=== PATIENT | female | born 1995 | race Caucasian/White ===

== ENCOUNTER → 2019-05-04 | Outpatient (CLI) | payer OTHER ==
[2019-05-04 17:28] LABS: BASO # 0.1 x10^3/uL (0.0-0.2); BASO % 1 % (0-3); EOS % 1 % (0-3); HEMATOCRIT 37.1 % (36.0-47.0); HEMOGLOBIN 12.8 g/dL (12.0-15.5); LYMPH # 1.5 x10^3/uL (1.0-4.8); LYMPH % 15 % (24-48); MEAN CORPUSCULAR HEMOGLOBIN 30 pg (25-35); MEAN CORPUSCULAR HGB CONC 35 g/dL (31-37); MEAN CORPUSCULAR VOLUME 87 fL (79-100); MONO # 0.5 x10^3/uL (0.0-1.1); MONO % 5 % (0-9); NEUT # 8.3 x10^3/uL (1.8-7.7); NEUT % 80 % (31-73); PLATELET COUNT 371 x10^3/uL (140-400); RED BLOOD COUNT 4.28 x10^6/uL (3.50-5.40); RED CELL DISTRIBUTION WIDTH 12.7 % (11.5-14.5); WHITE BLOOD COUNT 10.4 x10^3/uL (4.0-11.0)
== END | disposition home or self-care (01) ==
LOC: LAB 16:41
PROVIDERS: ATTEND Obstetrics & Gynecology
DX: Z32.01 Encounter for pregnancy test, result positive (principal)
CPT/HCPCS: 81220; 85025; 86592; 86703; 86762; 86850; 86900; 86901; 87340

== ENCOUNTER 2019-07-28 20:45 | Emergency (ER) | payer OTHER ==
[~2019-07-28] VITALS: Ht 167.6 cm; Wt 90.7 kg
--- NOTE | 2019-07-28 21:49 | PHYS DOC ---
Past Medical History Past Medical History: No Pertinent History (LAURIE GREEN APRN) Past Surgical History: No Surgical History (LAURIE GREEN APRN) Alcohol Use: None Drug Use: None (LAURIE GREEN APRN) Attending Signature I have participated in the care of this patient and I have reviewed and agree with all pertinent clinical information above including history, exam, and recommendations. (LESLIE MONTEJO MD) Adult General Chief Complaint Chief Complaint: ABDOMINAL PAIN HPI HPI Patient is a 23 year old female who presents with 18 weeks and states yesterday she began having left upper side pain that felt sharp or as "if you wo rk out to hard and get side pains". Patient states the right side is now started interval at times shoot up. Patient states she can just be sitting there and the pain will start or if she takes a deep breath or with movement especially. She currently denies any pain. (LAURIE GREEN APRN) Review of Systems Review of Systems Musculoskeletal: Bilateral side pain. Denies back pain or joint pain [] All other systems were reviewed and found to be within normal limits, except as documented in this note. (LAURIE GREEN APRN) Physical Exam Physical Exam Constitutional: Well developed, well nourished, no acute distress, non-toxic appearance. [] HENT: Normocephalic, atraumatic, bilateral external ears normal, oropharynx todd st, no oral exudates, nose normal. [] Eyes: PERRLA, EOMI, conjunctiva normal, no discharge. [] Neck: Normal range of motion, no tenderness, supple, no stridor. [] Cardiovascular:Heart rate regular rhythm, no murmur [] Lungs & Thorax: Bilateral breath sounds clear to auscultation [] Abdomen: Bowel sounds normal, soft, no tenderness, no masses, no pulsatile masses. [] Skin: Warm, dry, no erythema, no rash. [] Back: No tenderness, no CVA tenderness. [] Extremities: No tenderness, no cyanosis, no clubbing, ROM intact, no edema. [] Neurologic: Alert and oriented X 3, normal motor function, normal sensory function, no focal deficits noted. [] Psychologic: Affect normal, judgement normal, mood normal. Normal Physical exam[] (LAURIE GREEN APRN) Current Patient Data Vital Signs Vital Signs Date Time Temp Pulse Resp B/P (MAP) Pulse Ox O2 Delivery O2 Flow Rate FiO2 07/28/19 22:32 98 18 118/63 (81) 98 07/28/19 21:18 99.3 Room Air 99.3 (LESLIE MONTEJO MD) Lab Values Laboratory Tests Test 07/28/19 21:00 Urine Collection Type Unknown Urine Color Yellow Urine Clarity Clear Urine pH 6.5 Urine Specific [place] 1.010 Urine Protein Negative mg/dL (NEG-TRACE) Urine Glucose (UA) Negative mg/dL (NEG) Urine Ketones (Stick) Negative mg/dL (NEG) Urine Blood Negative (NEG) Urine Nitrite Negative (NEG) Urine Bilirubin Negative (NEG) Urine Urobilinogen Dipstick 0.2 mg/dL (0.2 mg/dL) Urine Leukocyte Esterase Trace (NEG) Urine RBC Rare /HPF (0-2) Urine WBC 5-10 /HPF (0-4) Urine Squamous Epithelial Cells Mod /LPF Urine Bacteria Few /HPF (0-FEW) Urine Mucus Slight /LPF (LESLIE MONTEJO MD) Lab Values Laboratory Tests Test 07/28/19 21:00 Urine Collection Type Unknown Urine Color Yellow Urine Clarity Clear Urine pH 6.5 Urine Specific [place] 1.010 Urine Protein Negative mg/dL (NEG-TRACE) Urine Glucose (UA) Negative mg/dL (NEG) Urine Ketones (Stick) Negative mg/dL (NEG) Urine Blood Negative (NEG) Urine Nitrite Negative (NEG) Urine Bilirubin Negative (NEG) Urine Urobilinogen Dipstick 0.2 mg/dL (0.2 mg/dL) Urine Leukocyte Esterase Trace (NEG) Urine RBC Rare /HPF (0-2) Urine WBC 5-10 /HPF (0-4) Urine Squamous Epithelial Cells Mod /LPF Urine Bacteria Few /HPF (0-FEW) Urine Mucus Slight /LPF (LAURIE GREEN APRN) EKG EKG [] (LAURIE GREEN APRN) Radiology/Procedures Radiology/Procedures [] (LAURIE GREEN APRN) Course & Med Decision Making Course & Med Decision Making Alert and oriented. Ambulatory with a steady gait. Abdomen is soft and nontender. Patient denies vaginal discharge, vaginal bleeding, abdominal pain, back pain, dysuria, injury, vomiting, cough, shortness of air, chest pain, dizziness, headache. There is no tenderness to palpation up patient's bilateral sides although it up her rib cage. No tenderness to palpation to the patient's chest. Lungs are clear to auscultation all lobes. Vital signs are within normal limits. I have discussed this patient with Dr Montejo and we agree this is likely muscle related. Patient has a UTI and will be treated. Patient needs to follow up with OB provider. (LAURIE GREEN APRN) Dragon Disclaimer Dragon Disclaimer This electronic medical record was generated, in whole or in part, using a voice recognition dictation system. (LAURIE GREEN APRN) Departure Departure Impression: Primary Impression: Rib pain Additional Impression: UTI (urinary tract infection) Disposition: 01 HOME, SELF-CARE Condition: STABLE Referrals: TOÑA QUIGLEY MD (PCP) Patient Instructions: ABCs of Additional Instructions: Call your OB in the morning so you can be seen. Use Tylenol for pain. Drink plenty of water. Scripts Cephalexin (KEFLEX) 500 Mg Capsule 1 CAP PO BID for 7 Days, #14 CAP 0 Refills Prov: LAURIE GREEN APRN 07/28/19 Problem Qualifiers Additional Impression: UTI (urinary tract infection) Urinary tract infection type: site unspecified Hematuria presence: with hematuria Qualified Codes: N39.0 - Urinary tract infection, site not specified; R31.9 - Hematuria, unspecified LAURIE GREEN APRN Jul 28, 2019 21:49 LESLIE MONTEJO MD Jul 29, 2019 18:50
[2019-07-28 22:00] LABS: BILIRUBIN,URINE NEGATIVE (NEG); CLARITY,URINE CLEAR; COLOR,URINE YELLOW; NITRITE,URINE NEGATIVE (NEG); PH,URINE 6.5; PROTEIN,URINE NEGATIVE (NEG-TRACE); UROBILINOGEN,URINE 0.2 mg/dL (0.2 mg/dL)
[2019-07-28 22:08] LABS: RBC,URINE RARE /HPF (0-2); SQUAMOUS EPITHELIAL CELL,UR MOD /LPF
[2019-07-28 22:09] LABS: BACTERIA,URINE FEW /HPF (0-FEW)
[2019-07-28] MEDS ORDERED: CEPH-264 PO (22:13)
[2019-07-28 22:32] VITALS: BP 118/63
== END 2019-07-28 22:37 | disposition home or self-care (01) ==
LOC: ER 20:45
DX: O23.42 Unspecified infection of urinary tract in pregnancy, second trimester (principal); R07.81 Pleurodynia; Z3A.18 18 weeks gestation of pregnancy
CPT/HCPCS: 81001; 87086; 99283; 99284